=== PATIENT | female | born 1940 | race Two or more races ===

== ENCOUNTER 2025-07-12 00:45 | Emergency (ER) | payer OTHER ==
[~2025-07-12] VITALS: Ht 147.3 cm; Wt 49.9 kg
[2025-07-12] MEDS ORDERED: FAMOTIDINE/PF 20 MG/2 ML VIAL IV STA (01:09)
[2025-07-12] MEDS ORDERED: METHYLPREDNISOLONE SOD SUCC 125 MG VIAL IV STA (01:09)
[2025-07-12] MEDS ORDERED: CEFTRIAXONE SODIUM 1,000 MG VIAL IV STA (01:10)
[2025-07-12] MEDS ORDERED: KETOROLAC TROMETHAMINE 30 MG VIAL IU STA (02:28)
[2025-07-12 03:36] LABS: BASO % 0.4 % (0.1-1.2); EOS # 0.04 (0.04-0.54); EOS % 0.6 % (0.7-7.0); LYMPH # 0.89 (1.18-3.74); LYMPH % 13.0 % (19.3-53.1); MEAN PLATELET VOLUME 12.10 fl (9.4-12.4); MONO # 0.97 (0.24-0.82); NEUT # 4.92 (1.56-6.13); NEUT % 71.6 % (34.0-71.1); RED CELL DISTRIBUTION WIDTH 12.6 % (11.6-14.4)
[2025-07-12 03:42] LABS: MONO % 14.1 % (4.7-12.5)
[2025-07-12 03:46] LABS: BUN CREA RATIO 19.0 (7.0-25.0); CREATININE SERUM 0.84 mg/dL (0.55-1.02); GFR 64.13; GLUCOSE FASTING 131.0 mg/dL (65-100); OSMOLALITY SERUM 284.0 MOSM/KG (275-295)
[2025-07-12 04:08] LABS: COVID-19 AG NEGATIVE (NEGATIVE)
[2025-07-12 07:58] LABS: URINE APPEARANCE Clear; URINE BILIRRUBIN Negative (NEGATIVE); URINE BLOOD Negative; URINE COLOR Yellow; URINE GLUCOSE Negative (NEGATIVE); URINE KETONE Negative (NEGATIVE); URINE LEUKOCYTE Trace; URINE NITRATE Negative; URINE PROTEIN Trace (NEGATIVE); URINE UROBILINOGEN 0.2 E.U./dl
[2025-07-12 08:00] LABS: URINE BACTERIA 25.1 uL (0.0-1933); URINE EPITHELIAL CELLS 2.6 uL (0.0-38.8); URINE RBC 4.9 uL (0.0-20.8)
[2025-07-12 08:37] LABS: URINE CAST 0.00 uL (0.0-1.40); URINE WBC 0.9 uL (0.0-23.2)
== END 2025-07-12 10:34 | disposition home or self-care (01) ==
LOC: ER 00:45
PROVIDERS: General Practice
DX: R53.1 Weakness (principal); R41.0 Disorientation, unspecified; Z20.822 Contact with and (suspected) exposure to COVID-19; E11.9 Type 2 diabetes mellitus without complications; I10 Essential (primary) hypertension